=== PATIENT | male | born 1990 | race Hispanic/Latino ===

== ENCOUNTER 2018-07-08 08:10 | Outpatient (CLI) | payer BC ==
--- NOTE | 2018-07-08 09:42 | ULT ---
ULTRASOUND RIGHT UPPER QUADRANT GALLBLADDER: Date: 07/08/18 HISTORY: Elevated LFTs. COMPARISON: None. FINDINGS: The visualized portions of the aorta, IVC, and pancreas are unremarkable. Diffuse increased hepatic e chotexture. Liver measures 18.1 cm in length. Right kidney measures 11.3 x 6.7 x 5.2 cm without mass, hydronephrosis, or abnormal calcifications. The gallbladder is normal. No pericholecystic fluid. Portal vein is patent with antegrade flow. IMPRESSION: Diffuse increased hepatic echotexture suggesting steatosis. No acute gallbladder pathology. POS: [facility]
== END 2018-07-08 08:11 | disposition home or self-care (01) ==
LOC: BICULT 08:10
PROVIDERS: ATTEND Internal Medicine
DX: R74.0 Nonspecific elevation of levels of transaminase and lactic acid dehydrogenase [LDH] (principal); R93.2 Abnormal findings on diagnostic imaging of liver and biliary tract
CPT/HCPCS: 76705